=== PATIENT | male | born 1955 | race African-American/Black ===

== ENCOUNTER 2019-10-22 13:55 | Emergency (ER) | payer SELFPAY ==
[~2019-10-22] VITALS: Ht 165.1 cm; Wt 61.4 kg
[2019-10-22] MEDS ORDERED: ATEN-187 PO (13:59)
[2019-10-22] MEDS ORDERED: PROPARACAINE HCL 0.5% 15 ML OPHTHALMIC SOLUTION OU ONE (14:15)
[2019-10-22] MEDS ORDERED: FLUORESCEIN SODIUM 1 MG STRIP ONE (14:17)
[2019-10-22 15:25] VITALS: BP 151/91
== END 2019-10-22 15:46 | disposition home or self-care (01) ==
LOC: EMS 13:55
DX: H40.9 Unspecified glaucoma (principal); I10 Essential (primary) hypertension